=== PATIENT | male | born 1990 | race Caucasian/White ===

== ENCOUNTER 2017-10-04 22:37 | Inpatient (IN) | payer SELFPAY ==
[~2017-10-04] VITALS: Ht 182.9 cm; Wt 132.0 kg
[~2017-10-04 22:37] MED LIST: METF500T PO; OSEL75 PO; ZOFR4TAB PO
[2017-10-05] VITALS (8 sets, daily range): BP systolic 131–143; BP diastolic 78–87; PULSE 114–124; RESP 20–21; TEMP 98.1–98.9; O2SAT 94–96
[2017-10-05] MEDS ORDERED: ACETAMINOPHEN 325 MG TAB PO PRN (02:30)
[2017-10-05] MEDS ORDERED: SODIUM CHLORIDE 0.9% FLUSH 10 ML FLUSH IV FLUSH PRN (02:30)
[2017-10-05] MEDS ORDERED: GLUCAGON 1 MG/ML VIAL OTHER PRN ×2 (02:30→15:15)
[2017-10-05] MEDS ORDERED: DEXTROSE 50% IN WATER 50 ML VIAL(D50) IV PUSH PRN ×2 (02:30→15:15)
[2017-10-05] MEDS ORDERED: NALOXONE HCL 0.4 MG/ML AMP IV PUSH PRN (02:30)
--- NOTE | 2017-10-05 03:07 | HHI.HP ---
[facility] Primary Care Physician No Primary Care Physician Admission Diagnosis Diagnoses: Chief Complaint: Abdominal pain Travel History International Travel<30 Days: No Contact w/Intl Traveler <30 Da: No History of Present Illness 27-year-old male with a history of newly diagnosed diabetes presented to the ED with complaints of abdominal pain. Patient states he is having right lower quadrant pain, constant, 8/10, dull stabbing , worse with movement with radiation to umbilical area and with associated nausea and fevers. He denies any chest pain, shortness of breath, fever or chills. Patient has just been diagnosed with diabetes, has not started his metformin yet, but states he does check his blood sugar at home with his mom's Accu-Chek and states it ranges from 180-200. Denies any chest pain or sob. Review of Systems Except as stated in HPI: all other systems reviewed are Neg Past Family Social History Past Medical History Newly diagnosed diabetes, has not started metformin yet Past Surgical History Tonsillectomy Allergies: Coded Allergies: naproxen (Verified Allergy, Intermediate, FACIAL SWELLING, 10/03/17) Family History Mom: Diabetes Dad: DM Social History Tobacco use: Denies Alcohol use: Socially Illicit drug use: Denies Physical Exam Physical Exam GENERAL: This is a well-nourished, obese patient who appears comfortable SKIN: No rashes, ecchymoses or lesions. Cool and dry. HEAD: Atraumatic. Normocephalic. EYES: Pupils equal round and reactive. Extraocular motions intact. No scleral icterus. CARDIOVASCULAR: Regular rate and rhythm without murmurs, gallops, or rubs. RESPIRATORY: Clear to auscultation. Breath sounds equal bilaterally. GASTROINTESTINAL: Abdomen soft, RLQ tenderness, nondistended. MUSCULOSKELETAL: Extremities without clubbing, cyanosis, or edema. NEUROLOGICAL: Awake and alert. Normal speech. Caprini VTE Risk Assessment Caprini VTE Risk Assessment: No/Low Risk (score <= 1) Caprini Risk Assessment Model Point Value = 1 Point Value = 2 Point Value = 3 Point Value = 5 Age 41-60 Minor surgery BMI > 25 kg/m2 Swollen legs Varicose veins or History of unexplained or recurrent spontaneous Oral contraceptives or hormone replacement Sepsis (< 1 month) Serious lung disease, including pneumonia (< 1 month) Abnormal pulmonary function Acute myocardial infarction Congestive heart failure (< 1 month) History of inflammatory bowel disease Medical patient at bed rest Age 61-74 Arthroscopic surgery Major open surgery (> 45 min) Laparoscopic surgery (> 45 min) Malignancy Confined to bed (> 72 hours) Immobilizing plaster cast Central venous access Age >= 75 History of VTE Family history of VTE Factor V Leiden Prothrombin [id number] Lupus anticoagulant Anticardiolipin antibodies Elevated serum homocysteine Heparin-induced thrombocytopenia Other congenital or acquired thrombophilia Stroke (< 1 month) Elective arthroplasty Hip, pelvis, or leg fracture Acute spinal cord injury (< 1 month) Prophylaxis Regimen Total Risk Factor Score Risk Level Prophylaxis Regimen 0-1 Low Early ambulation 2 Moderate Order ONE of the following: *Sequential Compression Device (SCD) *Heparin 5000 units SQ BID 3-4 Higher Order ONE of the following medications: *Heparin 5000 units SQ TID *Enoxaparin/Lovenox 40 mg SQ daily (WT < 150 kg, CrCl > 30 mL/min) *Enoxaparin/Lovenox 30 mg SQ daily (WT < 150 kg, CrCl > 10-29 mL/min) *Enoxaparin/Lovenox 30 mg SQ BID (WT < 150 kg, CrCl > 30 mL/min) AND/OR *Sequential Compression Device (SCD) 5 or more Highest Order ONE of the following medications: *Heparin 5000 units SQ TID (Preferred with Epidurals) *Enoxaparin/Lovenox 40 mg SQ daily (WT < 150 kg, CrCl > 30 mL/min) *Enoxaparin/Lovenox 30 mg SQ daily (WT < 150 kg, CrCl > 10-29 mL/min) *Enoxaparin/Lovenox 30 mg SQ BID (WT < 150 kg, CrCl > 30 mL/min) AND *Sequential Compression Device (SCD) Assessment and Plan Assessment and Plan 27-year-old male with a history of newly diagnosed diabetes presented to the ED with complaints of abdominal pain. Sepsis by criteria with associated abdominal pain, suspect duodenitis WBC 17.3, patient is tachycardic Abdominal CT reviewed and shows extensive inflammatory changes in the retroperitoneum which appears to be centered on the duodenum, infectious or inflammatory duodenitis and/or perforation cannot be excluded. -Consult GI for recommendations -IVF for hydration -Antiemetics for nausea -IV antibiotics Zosyn -Follow blood cultures New onset diabetes -Accu-Cheks with sliding scale insulin -A1c ordered, -Diabetic diet when no longer npo -Start metformin in [address] DVT prophylaxis: SCDs Discussed Condition With Patient and RN Physician Certification 2 Midnight Certification Type: Admission for Inpatient Services Order for Inpatient Services The services are ordered in accordance with Medicare regulations or non- Medicare payer requirements, as applicable. In the case of services not specified as inpatient-only, they are appropriately provided as inpatient services in accordance with the 2-midnight benchmark. Estimated LOS (days): 2 days is the estimated time the patient will need to remain in the hospital, assuming treatment plan goals are met and no additional complications. Post-Hospital Plan: Home [place] Gilliland Oct 05, 2017 03:07
[2017-10-05] MEDS: SODIUM CHLOR 0.9% 1000 ML INJ 1,000 ML IV SCH ×3 (03:31→19:35)
[2017-10-05] MEDS: PIPERACIL-TAZO 3.375 GM PREMIX 50 ML IV SCH ×4 (03:31→20:27)
[2017-10-05] MEDS: MORPHINE SULFATE 4 MG/ML INJ IV PUSH PRN ×3 (04:25→20:27)
[2017-10-05] MEDS: INSULIN ASPART SUPPLEMENTAL SCALE SQ SCH ×4 (08:00→21:00)
[2017-10-05 08:12] LABS: AUTOMATED NEUTROPHIL # 11.1 TH/MM3 (1.8-7.7); BASOPHIL % 0.3 % (0.0-2.0); EOSINOPHIL % 0.3 % (0.0-4.0); HEMATOCRIT 38.3 % (39.0-51.0); LYMPH % 11.1 % (9.0-44.0); LYMPHOCYTE # 1.5 TH/MM3 (1.0-4.8); MEAN CELL VOLUME 88.3 FL (80.0-100.0); MEAN CORPUSCULAR HEMOGLOBIN 29.9 PG (27.0-34.0); MEAN CORPUSCULAR HGB CONC 33.8 % (32.0-36.0); MEAN PLATELET VOLUME 9.4 FL (7.0-11.0); MONO % 8.8 % (0.0-8.0); MONOCYTE # 1.2 TH/MM3 (0-0.9); NEUT % 79.5 % (16.0-70.0); PLATELET COUNT 221 TH/MM3 (150-450); RED BLOOD COUNT 4.34 MIL/MM3 (4.50-5.90); RED CELL DISTRIBUTION WIDTH 13.7 % (11.6-17.2); WHITE BLOOD COUNT 13.9 TH/MM3 (4.0-11.0)
[2017-10-05] MEDS: SODIUM CHLORIDE 0.9% FLUSH 10 ML FLUSH IV FLUSH SCH ×2 (08:33→20:28)
[2017-10-05 08:45] LABS: BICARBONATE 16.1 MEQ/L (21.0-32.0); BLOOD UREA NITROGEN 6 MG/DL (7-18); CALCIUM 8.2 MG/DL (8.5-10.1); CHLORIDE 104 MEQ/L (98-107); CREATININE 0.67 MG/DL (0.60-1.30); GLOMERULAR FILTRATION RATE 143 ML/MIN (>89); GLUCOSE,RANDOM 183 MG/DL (74-106); SODIUM (NA) 136 MEQ/L (136-145)
--- NOTE | 2017-10-05 09:04 | PD.CONS ---
HPI History of Present Illness This is a 27 year old with a history of newly diagnosed diabetes presented to the ED with complaints of abdominal pain. Symptoms started on Saturday, with N/V , first thought it was the flu, was placed on Theraflu. He started having RLQ pain, he went to the ED in [place], symptoms were attributed to newly diagnosed DM, CT done and that showed extensive inflammatory changes in the retroperitoneum which appears to be centered on the duodenum, infectious or inflammatory duodenitis and/or perforation cannot be excluded. The pain is in right lower quadrant pain, but spreading to lower abd area, constant, 8/10, dull stabbing . He endorses fever of 99 at home. States BMs have been irregular , but he hasn't been eating right due to pain and decline in appetite. Endorses loose stools. He denies hematemesis, melena or hematochezia. Denies previous hx of this. No family hx of IBD. Labs revealed leukocytosis. Patient has just been diagnosed with diabetes, has not started his metformin yet, but states he does check his blood sugar at home with his mom's Accu-Chek and states it ranges from 180-200. (Walter Tenorio) PFSH Past Medical History Newly diagnosed diabetes, has not started metformin yet Past Surgical History Tonsillectomy (Walter Tenorio) Coded Allergies: naproxen (Verified Allergy, Intermediate, FACIAL SWELLING, 10/03/17) Medications Current Medications Medications (Trade) Dose Ordered Sig/Derek Route Start Time Stop Time Status Last Admin Sodium Chloride 1,000 ml @ 100 mls/hr Q10H IV 10/05/17 02:29 10/05/17 03:31 (NS Flush) 2 ml UNSCH PRN IV FLUSH 10/05/17 02:30 (NS Flush) 2 ml BID IV FLUSH 10/05/17 09:00 (Tylenol) 650 mg Q4H PRN PO 10/05/17 02:30 (Narcan Inj) 0.4 mg UNSCH PRN IV PUSH 10/05/17 02:30 (D50w (Vial) Inj) 50 ml UNSCH PRN IV PUSH 10/05/17 02:30 (Glucagon Inj) 1 mg UNSCH PRN OTHER 10/05/17 02:30 (NovoLOG SUPPLEMENTAL SCALE) 1 ACHS SLIDING SCALE SQ 10/05/17 08:00 Piperacillin Sod/ Tazobactam Sod 50 ml @ 100 mls/hr Q6H IV 10/05/17 03:00 10/05/17 08:33 (Reglan Inj) 10 mg Q8H PRN IM 10/05/17 02:45 (Morphine Inj) 2 mg Q3H PRN IV PUSH 10/05/17 02:45 10/05/17 08:33 Family History Mom: Diabetes Dad: DM Social History Tobacco use: Denies Alcohol use: Socially Illicit drug use: Denies (Walter Tenorio) Review of Systems Constitutional: COMPLAINS OF: Fatigue, Fever, Change in appetite Endocrine: DENIES: Polyuria Eyes: DENIES: Double Vision Ears, nose, mouth, throat: DENIES: Hoarseness Respiratory: DENIES: Shortness of breath Cardiovascular: DENIES: Chest pain Gastrointestinal: COMPLAINS OF: Abdominal pain, Diarrhea, Nausea, Vomiting, Anorexia, DENIES: Black stools, Bloody stools, Constipation, Difficulty Swallowing, Odynophagia, Swelling of Abdomen, Heartburn, Hematemesis Genitourinary: DENIES: Hematuria Musculoskeletal: DENIES: Back pain Integumentary: DENIES: Jaundice Hematologic/lymphatic: DENIES: Bruising Immunologic/allergic: DENIES: Eczema Neurologic: DENIES: Abnormal gait Psychiatric: DENIES: Anxiety (Walter Tenorio) GI Exam Vitals I&O Vital Signs Date Time Temp Pulse Resp B/P (MAP) Pulse Ox O2 Delivery O2 Flow Rate FiO2 10/05/17 08:00 98.1 116 20 131/78 (95) 94 10/05/17 05:49 98.9 116 21 133/78 (96) [address] on 10/04/17 extensive inflammatory changes in the retroperitoneum which appears to be centered on the duodenum, infectious or inflammatory duodenitis and/or perforation cannot be excluded. Laboratory Test 10/05/17 07:08 White Blood Count 13.9 TH/MM3 Red Blood Count 4.34 MIL/MM3 Hemoglobin 13.0 GM/DL Hematocrit 38.3 % Mean Corpuscular Volume 88.3 FL Mean Corpuscular Hemoglobin 29.9 PG Mean Corpuscular Hemoglobin Concent 33.8 % Red Cell Distribution Width 13.7 % Platelet Count 221 TH/MM3 Mean Platelet Volume 9.4 FL Neutrophils (%) (Auto) 79.5 % Lymphocytes (%) (Auto) 11.1 % Monocytes (%) (Auto) 8.8 % Eosinophils (%) (Auto) 0.3 % Basophils (%) (Auto) 0.3 % Neutrophils # (Auto) 11.1 TH/MM3 Lymphocytes # (Auto) 1.5 TH/MM3 Monocytes # (Auto) 1.2 TH/MM3 Eosinophils # (Auto) 0.0 TH/MM3 Basophils # (Auto) 0.0 TH/MM3 CBC Comment DIFF FINAL Differential Comment Blood Urea Nitrogen 6 MG/DL Creatinine 0.67 MG/DL Random Glucose 183 MG/DL Calcium Level 8.2 MG/DL Sodium Level 136 MEQ/L Potassium Level 3.7 MEQ/L Chloride Level 104 MEQ/L Carbon Dioxide Level 16.1 MEQ/L Anion Gap 16 MEQ/L Estimat Glomerular Filtration Rate 143 ML/MIN Physical Examination HEENT: Pupils round and reactive to light; normocephalic; atraumatic; no jaundice. Throat is clear. CHEST: Chest is clear to auscultation and percussion. CARDIAC: Regular rate and rhythm with no murmur gallop or rubs. ABDOMEN: Soft, nondistended, RLQ tenderness; no hepatosplenomegaly; bowel sounds are present in all four quadrants. EXTREMITIES: No clubbing, cyanosis, or edema. SKIN: Normal; no rash; no jaundice. DEVOPS SOLUTIONS ARCHITECT: No focal deficits; alert and oriented times three. (Walter Tenorio) Assessment and Plan Plan - Abd pain- Symptoms started on Saturday, with N/V, first thought it was the flu, was placed on Theraflu. He started having RLQ pain, he went to the ED in [place], symptoms were attributed to newly diagnosed DM, CT done 10/04/17 and that showed extensive inflammatory changes in the retroperitoneum which appears to be centered on the duodenum, infectious or inflammatory duodenitis and/or perforation cannot be excluded. The pain is in right lower quadrant pain, but spreading to lower abd area, constant, 8/10, dull stabbing . He endorses fever of 99 at home. States BMs have been irregular, but he hasn't been eating right due to pain and decline in appetite. Endorses loose stools. He denies hematemesis, melena or hematochezia. Denies previous hx of this. No family hx of IBD. Labs revealed leukocytosis. - leukocytosis- likely secondary to above, blood cx pending, afebrile, Zosyn - Patient has just been diagnosed with diabetes, has not started his metformin yet, but states he does check his blood sugar at home with his mom's Accu-Chek and states it ranges from 180-200. Differential diagnosis include pancreatitis, diverticulitis, IBD Plan: - NPO - SBF with Gastrografin - Consults surg. - Needs EGD/colonoscopy pending above results. - LFTs, lipase - Cont. abx - Supportive care - Pt seen and examined by Dr. Delgado and myself and this note is written on her behalf. (Walter Tenorio) Physician Comments seen, examined agree with above sbft negative we will order mrcp lipid profile (Radha Delgado MD) Walter Tenorio Oct 05, 2017 09:04 Radha Delgado MD Oct 05, 2017 20:31
[2017-10-05 10:42] LABS: TOTAL BILIRUBIN ADULT 0.7 MG/DL (0.2-1.0)
[2017-10-05 10:43] LABS: ALBUMIN 2.6 GM/DL (3.4-5.0); DIRECT BILIRUBIN ADULT 0.1 MG/DL (0.0-0.2); INDIRECT BILIRUBIN 0.6 MG/DL (0.0-0.8)
--- NOTE | 2017-10-05 10:51 | RADRPT ---
EXAM DATE: 10/05/2017 10:46 AM EDT AGE/SEX: 27 years / Male INDICATIONS: Rule-out perforation. Right sided abdominal pain. CLINICAL DATA: This is the patient's initial encounter. Patient reports that signs and symptoms have been present for 4 - 6 days and indicates a pain score of 10/10. MEDICAL/SURGICAL HISTORY: None. None. COMPARISON: [facility], CT ABDOMEN & PELVIS W CONTRAST, 10/04/2017. . FLUORO TIME: 0.4 IMAGE COUNT: 15 CONTRAST: FINDINGS: Preliminary film is unremarkable. The stomach is grossly unremarkable. Examination of the small bowel demonstrates mild wall thickening involving jejunal bowel loops in lef t abdomen. No significant dilated loops.. There is no evidence of mass or obstruction. No intralumi nal filling defects are identified. Small bowel transit time is normal at 60 minutes. Fluoroscopy o f the abdomen and terminal ileum demonstrates no abnormality. CONCLUSION: Mild mucosal wall thickening of jejunal bowel loops. No obstruction. No definite perforation. Electronically signed by: Eugenio Koch MD 10/05/2017 10:50 AM EDT
[2017-10-05] MEDS: METOCLOPRAMIDE HCL 10 MG/2 ML VIAL IM PRN (10:53)
[2017-10-05] MEDS ORDERED: DIATRIZOATE MEGLUM/DIATRIZOATE SOD 120 ML BTL (for RAD DIAG) PO ONE (11:38)
[2017-10-05 11:40] LABS: HEMOGLOBIN A1C 11.8 % (4.3-6.0)
--- NOTE | 2017-10-05 12:45 | HHI.PR ---
Subjective Remarks Pt seen and examined for f/u of abdominal pain, nausea, and vomiting. Pt reports since having several bowel movements this morning he has felt some relief of his abdominal pain and pressure. He states his BMs are liquid and yellow, no blood. He reports feeling hungry and states he feels like he can eat. He admits to binge drinking on the weekends and thinks that his symptoms may have been preceded by a binge drinking episode. Currently he feels burning in his suprapubic region and RLQ. Last episode of vomiting was after he drank the contrast. Objective Vital Signs Date Time Temp Pulse Resp B/P (MAP) Pulse Ox O2 Delivery O2 Flow Rate FiO2 10/05/17 12:08 124 10/05/17 10:55 122 10/05/17 08:00 98.1 116 20 131/78 (95) 94 10/05/17 05:49 98.9 116 21 133/78 (96) 96 I/O 10/04/17 10/04/17 10/04/17 10/05/17 10/05/17 10/05/17 07:00 15:00 23:00 07:00 15:00 23:00 Intake Total 50 ml Balance 50 ml Intake IV Total 50 ml # Voids 1 Result Diagram: 10/05/17 0708 10/05/17 0708 Imaging Small Bowel X-Ray 10/05/17 0000 Signed Impressions: CONCLUSION: Mild mucosal wall thickening of jejunal bowel loops. No obstruction. No definit e perforation. Objective Remarks GENERAL: WN, WD male resting in bed in [facility]. SKIN: Warm and dry. HEENT: AT/NC. Pupils equal and round. MMM. NECK: Supple no tender LAD or JVD. HEART: RRR no m/r/g. LUNGS: CTAB without wheezes or crackles. ABDOMEN: Hypoactive bowel sounds, soft, ND, mild tenderness in epigastric, suprapubic, and RLQ. No guarding or rebound. EXTREMITIES: No LE edema. NEURO: Awake and alert. Nonfocal. PSYCH: Appropriate mood and affect. A/P Problem List: (1) Abdominal pain ICD Code: R10.9 - Unspecified abdominal pain Assessment and Plan 27 year old male with new onset diabetes diagnosed in the ER on 10/03 admitted for worsening abdominal pain, nausea, and vomiting. 1. Abdominal pain, SIRS/sepsis with ?GI source - CT A/P from ER on 10/03 showing inflammatory change and indistinctness involving the region of the head of the pancreas most characteristic of acute pancreatitis with adjacent calcification which may be located in the bowel; small amount of fluid extending down the right paracolic gutter into the pelvis ; prominent liver with moderate to severe hepatic steatosis; unremarkable appearing gallbladder with no calcified gallstone - White count elevated to 18, down to 13.9 this morning - Lipase jumped from 193 yesterday evening to 3353 today and there was evidence of pancreatitis on prior CT but I am not sure this is the reason for all of his pain. Will still treat accordingly with pain control, IV fluid hydration, and bowel rest - Small bowel follow-through showing mild mucosal wall thickening of jejunal bowel loops, no obstruction, no definite perforation - Blood cultures NG x 1 day - GI consulted, planning on EGD and colonoscopy but first consulted general surgery to rule out perforation - Increase IV fluids to 150 ml/hr - Antiemetics - IV Zosyn to cover for sepsis with suspected GI source - Morphine PRN 2. New onset DM - A1c elevated at 11.8 - channel sales manager and resident caregiver consulted - SSI per protocol 3. Diarrhea - May be secondary to contrast and IV abx since it just started but will check C. diff PCR - Lactobacillus DVT prophylaxis: Carin Beavers MD Oct 05, 2017 12:45
--- NOTE | 2017-10-05 16:50 | MB ---
cc: Montana Villa MD DATE: 10/05/2017 REASON FOR CONSULTATION: Possible perforated duodenum. HISTORY OF PRESENT ILLNESS: This is a pleasant 27-year-old gentleman who has been in the hospital since yesterday. He has had 2 other ER visits. He had complained of some abdominal discomfort, at one time thought he had the flu and they put him on some Tamiflu. He then returned to the emergency room with increasing pain. CT scan showed pancreatitis. Then, he apparently left and then came back. Another scan done with contrast showed more severe pancreatitis, question thickened duodenum and inflammation around the duodenum, and repeat blood work showed an amylase of 3000 range. Surgery is consulted because of the inflammation around the duodenum, questionable perforation. PAST MEDICAL HISTORY: Negative for any chronic medical problems, although he was recently diagnosed with new onset diabetes and recently started on Tamiflu for questionable the flu. SOCIAL HISTORY: He does drink occasionally, and last weekend found out he was becoming a father and celebrated last Saturday, but had not drank since then. He denies any tobacco use. PHYSICAL EXAMINATION: GENERAL: He is a well-nourished gentleman, alert, oriented, obviously uncomfortable. NECK: Supple. LUNGS: Clear. HEART: Regular rate. ABDOMEN: Tender in the right flank, right lower quadrant area with no rebound or guarding. No surgical scars. No umbilical hernia. Bowel sounds are present throughout. NEUROLOGIC: He is alert and oriented, without focal deficits. He is able to move his extremities without difficulty. LABORATORY DATA: He had a white count of 18,000 on the . Today, it is 13. H and H of 13 at 38. Chemistry shows a slightly elevated total bilirubin, which was yesterday and now is normal. His hemoglobin A1c is 11. His lipase yesterday was 193; today, it is 3353. IMAGING STUDIES: He had a CT scan done the , which showed some inflammation around the pancreas. He had a CT scan with contrast done on the , which showed questionable thickening, inflammation of the duodenum and pancreas. No gallstones were mentioned. I did a small-bowel follow through series, which shows some thickening mucosa of the jejunum, but no obstruction or no perforation. ASSESSMENT: A 27-year-old gentleman who appears to have severe pancreatitis. I reviewed the case with Dr. Delgado, the chef & owner, reviewed the case with the patient and also his . At this point, MRCP to see if he has stones. I suspect if he does not have stones, it may be related to his diabetes or possibly medicine or his alcohol use. I will follow along during this interesting workup of this gentleman. Montana Villa MD JANNIKA/FISH , 04:31 PM , 04:48 PM
[2017-10-05 17:23] LABS: BILIRUBIN, URINE NEG (NEG); BLOOD, URINE SMALL (NEG); GLUCOSE,URINE >=500 mg/dL (NEG); KETONE, URINE 80 OR GREATER mg/dL (NEG); NITRITE,URINE NEG (NEG); URINE COLOR YELLOW (YELLW/STRAW); URINE LEUKOCYTE ESTERASE NEG (NEG)
--- NOTE | 2017-10-05 17:35 | RADRPT ---
EXAM DATE: 10/05/2017 5:06 PM EDT AGE/SEX: 27 years / Male INDICATIONS: Pancreatitis. CLINICAL DATA: This is the patient's initial encounter. Patient reports that signs and symptoms have been present for 1 day and indicates a pain score of 5/10. MEDICAL/SURGICAL HISTORY: None. Tonsillectomy. COMPARISON: No prior exams available for comparison. TECHNIQUE: Multiplanar, multisequence images of the abdomen were obtained without contrast including dedicated cholangiographic images. FINDINGS: Correlation is made with recent CT. On today's exam there is more edema and fluid around the pancreas than on the recent CT from October 04 most characteristic of an acute pancreatitis. The second portion of the duodenum also has some mural thickening suggesting duodenitis. Common bile duct has normal caliber of about 4 mm without evidence for choledocholithiasis. The liver is fatty and enlarged to 28 cm in length. Spleen is normal in size. Pancreatic duct has normal calib er. No acute findings in the kidneys or adrenals. No bowel obstruction identified. CONCLUSION: 1. Fluid and edematous changes around the pancreas most characteristic of an acute pancreatitis. Nor mal appearance of the common bile duct and pancreatic duct. 2. Fatty infiltration with hepatomegaly up to 28 cm. Electronically signed by: Montana Estrada MD 10/05/2017 5:34 PM EDT
[2017-10-05] MEDS: LACTOBACILLUS ACIDOPHILUS TAB PO SCH (20:26)
[2017-10-06] VITALS: BP 142/92; PULSE 110; RESP 21; TEMP 98.4; O2SAT 95
[2017-10-06] MEDS: SODIUM CHLOR 0.9% 1000 ML INJ 1,000 ML IV SCH ×5 (00:38→20:14)
[2017-10-06] MEDS: PIPERACIL-TAZO 3.375 GM PREMIX 50 ML IV SCH ×2 (03:59→08:15)
[2017-10-06 04:00] VITALS: BP 139/81; PULSE 103; RESP 20; TEMP 98.5; O2SAT 94
[2017-10-06 05:14] LABS: AUTOMATED NEUTROPHIL # 11.1 TH/MM3 (1.8-7.7); BASOPHIL # 0.1 TH/MM3 (0-0.2); BASOPHIL % 0.5 % (0.0-2.0); EOSINOPHIL # 0.2 TH/MM3 (0-0.4); EOSINOPHIL % 1.2 % (0.0-4.0); HEMATOCRIT 37.4 % (39.0-51.0); HEMOGLOBIN 12.5 GM/DL (13.0-17.0); LYMPH % 12.5 % (9.0-44.0); LYMPHOCYTE # 1.8 TH/MM3 (1.0-4.8); MEAN CELL VOLUME 87.7 FL (80.0-100.0); MEAN CORPUSCULAR HEMOGLOBIN 29.2 PG (27.0-34.0); MEAN CORPUSCULAR HGB CONC 33.3 % (32.0-36.0); MONO % 8.8 % (0.0-8.0); MONOCYTE # 1.3 TH/MM3 (0-0.9); PLATELET COUNT 246 TH/MM3 (150-450); RED BLOOD COUNT 4.27 MIL/MM3 (4.50-5.90); RED CELL DISTRIBUTION WIDTH 13.7 % (11.6-17.2); WHITE BLOOD COUNT 14.4 TH/MM3 (4.0-11.0)
[2017-10-06 05:35] LABS: BICARBONATE 17.3 MEQ/L (21.0-32.0); CALCIUM 8.1 MG/DL (8.5-10.1); CREATININE 0.64 MG/DL (0.60-1.30)
[2017-10-06 05:37] LABS: CHOLESTEROL/ HDL RATIO 8.84 RATIO; HDL CHOLESTEROL 25.2 MG/DL (40.0-60.0)
[2017-10-06] MEDS: SODIUM CHLORIDE 0.9% FLUSH 10 ML FLUSH IV FLUSH SCH ×2 (07:55→20:16)
[2017-10-06 08:00] VITALS: BP 143/90; PULSE 104; RESP 17; TEMP 97.8; O2SAT 94
[2017-10-06] MEDS: MORPHINE SULFATE 4 MG/ML INJ IV PUSH PRN ×4 (08:15→20:25)
[2017-10-06] MEDS: LACTOBACILLUS ACIDOPHILUS TAB PO SCH ×2 (08:15→20:12)
[2017-10-06] MEDS: INSULIN ASPART SUPPLEMENTAL SCALE SQ SCH ×4 (08:16→20:24)
[2017-10-06 12:00] VITALS: BP 140/87; PULSE 96; RESP 18; TEMP 98.9; O2SAT 94
--- NOTE | 2017-10-06 12:45 | HHI.GIFU ---
Subjective Remarks Patient is resting in the bed family member present Positive for some mild nausea but no vomiting, tolerating clear liquid diet Current hemoglobin 12.5 no obvious bleeding Still has some mild right lower quadrant discomfort dull ache. (Laya Napoles) Objective Vitals I&O Vital Signs Date Time Temp Pulse Resp B/P (MAP) Pulse Ox O2 Delivery O2 Flow Rate FiO2 10/06/17 08:20 18 10/06/17 08:00 97.8 104 17 143/90 (107) 94 10/06/17 04:00 98.5 103 20 139/81 (100) 94 10/06/17 00:00 98.4 110 21 142/92 (109) 95 10/05/17 19:57 98.3 114 21 143/85 (104) 95 10/05/17 16:18 98.4 117 20 136/87 (103) 95 10/05/17 15:59 121 10/05/17 12:45 98.1 122 20 134/83 (100) 94 I/O 10/05/17 10/05/17 10/05/17 10/06/17 10/06/17 10/06/17 07:00 15:00 23:00 07:00 15:00 23:00 Intake Total 50 ml 50 ml 2417 ml Balance 50 ml 50 ml 2417 ml Intake Oral 1450 ml IV Total 50 ml 50 ml 967 ml # Voids 1 2 # Bowel Movements 1 Laboratory Laboratory Tests Test 10/05/17 16:10 10/05/17 17:25 10/06/17 04:55 10/06/17 09:44 Urine Color YELLOW Urine Turbidity CLEAR Urine pH 5.0 Urine Specific [place] 1.028 Urine Protein 100 Urine Glucose (UA) >=500 Urine Ketones 80 OR GREATER Urine Occult Blood SMALL Urine Nitrite NEG Urine Bilirubin NEG Urine Urobilinogen LESS THAN 2 Urine Leukocyte Esterase NEG Urine RBC 1 Urine WBC 2 Microscopic Urinalysis Comment CULT NOT INDICATED Stool C. difficile Toxin (PCR) NEGATIVE Stl C. difficile Toxin Epiderm 027 PRESUMPTIVE NEGATIVE White Blood Count 14.4 Red Blood Count 4.27 Hemoglobin 12.5 Hematocrit 37.4 Mean Corpuscular Volume 87.7 Mean Corpuscular Hemoglobin 29.2 Mean Corpuscular Hemoglobin Concent 33.3 Red Cell Distribution Width 13.7 Platelet Count 246 Mean Platelet Volume 9.0 Neutrophils (%) (Auto) 77.0 Lymphocytes (%) (Auto) 12.5 Monocytes (%) (Auto) 8.8 Eosinophils (%) (Auto) 1.2 Basophils (%) (Auto) 0.5 Neutrophils # (Auto) 11.1 Lymphocytes # (Auto) 1.8 Monocytes # (Auto) 1.3 Eosinophils # (Auto) 0.2 Basophils # (Auto) 0.1 CBC Comment DIFF FINAL Differential Comment Blood Urea Nitrogen 7 Creatinine 0.64 Random Glucose 194 Calcium Level 8.1 Sodium Level 139 Potassium Level 3.4 Chloride Level 106 Carbon Dioxide Level 17.3 Anion Gap 16 Estimat Glomerular Filtration Rate 151 Triglycerides Level 307 Cholesterol Level 223 LDL Cholesterol 136 HDL Cholesterol 25.2 Cholesterol/HDL Ratio 8.84 Lipase 424 Lactic Acid Level 0.8 Imaging Last Impressions Small Bowel X-Ray 10/05/17 0000 Signed Impressions: CONCLUSION: Mild mucosal wall thickening of jejunal bowel loops. No obstruction. No definit e perforation. Cholangiopancreatography MRI 10/05/17 0000 Signed Impressions: CONCLUSION: 1. Fluid and edematous changes around the pancreas most characteristic of an a cute pancreatitis. Normal appearance of the common bile duct and pancreatic clifton t. 2. Fatty infiltration with hepatomegaly up to 28 cm. Physical Exam HEENT: Obese, normocephalic; atraumatic; no jaundice. NECK: Neck is supple, no JVD, no lymphadenopathy. CHEST: Chest is clear to auscultation and percussion. CARDIAC: Regular tachycardic rhythm heart rate 104 ABDOMEN: Obese, round, soft, nondistended, mild right lower quadrant dull ache , no palpable hepatosplenomegaly; bowel sounds are present in all four quadrants. EXTREMITIES: No clubbing, cyanosis, or edema. SKIN: No rash, pale POSTING MACHINE OPERATOR: No focal deficits; alert and oriented times three. (Laya Napoles) Assessment and Plan Plan - Abd pain- Symptoms started on Saturday, with N/V, first thought it was the flu, was placed on Theraflu. He started having RLQ pain, he went to the ED in [place], symptoms were attributed to newly diagnosed DM, CT done 10/04/17 and that showed extensive inflammatory changes in the retroperitoneum which appears to be centered on the duodenum, infectious or inflammatory duodenitis and/or perforation cannot be excluded. The pain is in right lower quadrant pain, but spreading to lower abd area, constant, 8/10, dull stabbing . He endorses fever of 99 at home. States BMs have been irregular, but he hasn't been eating right due to pain and decline in appetite. Endorses loose stools. He denies hematemesis, melena or hematochezia. Denies previous hx of this. No family hx of IBD. Labs revealed leukocytosis. - leukocytosis- likely secondary to above, blood cx pending, afebrile, Zosyn - Patient has just been diagnosed with diabetes, has not started his metformin yet, but states he does check his blood sugar at home with his mom's Accu-Chek and states it ranges from 180-200. Differential diagnosis include pancreatitis, diverticulitis, IBD 10/06/2017. Patient is feeling somewhat better but continues with right lower quadrant discomfort dull ache. Current hemoglobin 12.5 mild elevated nonspecific leukocytosis 14.4, lipase level decreased to 424. Patient shows hyperlipidemia per lab work and hyperglycemia which is going to need following on an outpatient basis. Patient also states he has had a tendency to have an upset stomach even as a child and diarrhea without any warning. He states the symptoms are better as he has gotten older. He does continue to use Pepto- Bismol as needed and does note his stools to be dark. MRCP showed fluid and edematous changes around the pancreas most consistent with acute pancreatitis. Normal appearance of common bile duct and pancreatic duct fatty liver disease with megaly up to 28 cm's. Small bowel series 2017 showed mild mucosal wall thickening of the jejunal bowel loops. No obstruction. No definite perforation. Discussed with patient the possibility for colonoscopy before discharge. Chronic abdominal pain and diarrhea could be related to IBS. Plan: Diet clear liquids Monitor labs with special attention to lipase level, hemoglobin PPI Consider colonoscopy possibly this week Supportive care Further recommendations to follow - Pt seen and examined by Dr. Delgado and myself and this note is written on her behalf. (Laya Napoles) Physician Comments seen, examined agree with above (Radha Delgado MD) Laya Napoles Oct 06, 2017 12:44 Radha Delgado MD Oct 06, 2017 21:36
--- NOTE | 2017-10-06 14:13 | HHI.PR ---
Subjective Subjective Notes Still sore in the abdomen. Objective Vitals/I&O Vital Signs Date Time Temp Pulse Resp B/P (MAP) Pulse Ox O2 Delivery O2 Flow Rate FiO2 10/06/17 12:54 18 10/06/17 12:00 98.9 96 140/87 (104) 94 Labs Laboratory Tests Test 10/05/17 16:10 10/05/17 17:25 10/06/17 04:55 10/06/17 09:44 Urine Color YELLOW Urine Turbidity CLEAR Urine pH 5.0 Urine Specific [place] 1.028 Urine Protein 100 Urine Glucose (UA) >=500 Urine Ketones 80 OR GREATER Urine Occult Blood SMALL Urine Nitrite NEG Urine Bilirubin NEG Urine Urobilinogen LESS THAN 2 Urine Leukocyte Esterase NEG Urine RBC 1 Urine WBC 2 Microscopic Urinalysis Comment CULT NOT INDICATED Stool C. difficile Toxin (PCR) NEGATIVE Stl C. difficile Toxin Epiderm 027 PRESUMPTIVE NEGATIVE White Blood Count 14.4 Red Blood Count 4.27 Hemoglobin 12.5 Hematocrit 37.4 Mean Corpuscular Volume 87.7 Mean Corpuscular Hemoglobin 29.2 Mean Corpuscular Hemoglobin Concent 33.3 Red Cell Distribution Width 13.7 Platelet Count 246 Mean Platelet Volume 9.0 Neutrophils (%) (Auto) 77.0 Lymphocytes (%) (Auto) 12.5 Monocytes (%) (Auto) 8.8 Eosinophils (%) (Auto) 1.2 Basophils (%) (Auto) 0.5 Neutrophils # (Auto) 11.1 Lymphocytes # (Auto) 1.8 Monocytes # (Auto) 1.3 Eosinophils # (Auto) 0.2 Basophils # (Auto) 0.1 CBC Comment DIFF FINAL Differential Comment Blood Urea Nitrogen 7 Creatinine 0.64 Random Glucose 194 Calcium Level 8.1 Sodium Level 139 Potassium Level 3.4 Chloride Level 106 Carbon Dioxide Level 17.3 Anion Gap 16 Estimat Glomerular Filtration Rate 151 Triglycerides Level 307 Cholesterol Level 223 LDL Cholesterol 136 HDL Cholesterol 25.2 Cholesterol/HDL Ratio 8.84 Lipase 424 Lactic Acid Level 0.8 Abdomen: Other A/P Assessment and Plan Pancreatitis unrelated to gallstones. Discussed with the patient and his family the etiologies of pancreatitis. I warned them against alcohol use and high fat diets. We discussed treatment of hypertriglyceridemia and high cholesterol. We talked about the role in surgery for pancreatitis, and at this time he does not require any surgical intervention. Contrast study the bowel showed no bowel perforation. MRCP findings reviewed in detail. No surgical intervention indicated. General surgery will sign off. Jai De La Fuente MD Oct 06, 2017 14:13
[2017-10-06] MEDS ORDERED: RESP: ALBUTEROL 2.5 MG/IPRATROPIUM 0.5 MG NEB (PRN) NEB (14:30)
[2017-10-06] MEDS ORDERED: BENZONATATE 100 MG CAP PO PRN (14:30)
--- NOTE | 2017-10-06 14:42 | HHI.PR ---
Subjective Remarks Pt seen and examined for f/u of pancreatitis. Patient reports his abdominal pain is slightly better. He continues to have diffuse discomfort especially over his RUQ but it is controlled with the medication. He had two small, nonbloody stools today. Denies N/V. Tolerating clears. Complains of worsening cough and dripping down his throat. States his cough has been present for about a week. Also feeling a little congested. Objective Vital Signs Date Time Temp Pulse Resp B/P (MAP) Pulse Ox O2 Delivery O2 Flow Rate FiO2 10/06/17 12:54 18 10/06/17 12:00 98.9 96 18 140/87 (104) 94 10/06/17 08:00 97.8 104 17 143/90 (107) 94 10/06/17 04:00 98.5 103 20 139/81 (100) 94 10/06/17 00:00 98.4 110 21 142/92 (109) 95 10/05/17 19:57 98.3 114 21 143/85 (104) 95 10/05/17 16:18 98.4 117 20 136/87 (103) 95 10/05/17 15:59 121 I/O 10/05/17 10/05/17 10/05/17 10/06/17 10/06/17 10/06/17 07:00 15:00 23:00 07:00 15:00 23:00 Intake Total 50 ml 50 ml 2417 ml Balance 50 ml 50 ml 2417 ml Intake Oral 1450 ml IV Total 50 ml 50 ml 967 ml # Voids 1 2 # Bowel Movements 1 Result Diagram: 10/06/17 0455 10/06/17 0455 Imaging Small Bowel X-Ray 10/05/17 0000 Signed Impressions: CONCLUSION: Mild mucosal wall thickening of jejunal bowel loops. No obstruction. No definit e perforation. Cholangiopancreatography MRI 10/05/17 0000 Signed Impressions: CONCLUSION: 1. Fluid and edematous changes around the pancreas most characteristic of an a cute pancreatitis. Normal appearance of the common bile duct and pancreatic clifton t. 2. Fatty infiltration with hepatomegaly up to 28 cm. Objective Remarks GENERAL: WN, WD male resting in bed in NAD. SKIN: Warm and dry. HEENT: AT/NC. Pupils equal and round. MMM. NECK: Supple no tender LAD or JVD. HEART: RRR no m/r/g. LUNGS: Mild R basilar crackles otherwise clear though patient coughing throughout exam. No appreciable wheezing. ABDOMEN: Hyperactive bowel sounds, soft, ND, mild tenderness in epigastric, suprapubic, and RLQ. No guarding or rebound. EXTREMITIES: No LE edema. NEURO: Awake and alert. Nonfocal. PSYCH: Appropriate mood and affect. A/P Problem List: (1) Pancreatitis ICD Code: K85.90 - Acute pancreatitis without necrosis or infection, unspecified (2) Diabetes mellitus with hyperglycemia ICD Code: E11.65 - Type 2 diabetes mellitus with hyperglycemia (3) Hyperlipidemia ICD Code: E78.5 - Hyperlipidemia, unspecified Assessment and Plan 27 year old male with new onset diabetes diagnosed in the ER on 10/03 admitted for worsening abdominal pain, nausea, and vomiting. 1. Pancreatitis - CT A/P from ER on 10/03 showing inflammatory change and indistinctness involving the region of the head of the pancreas most characteristic of acute pancreatitis with adjacent calcification which may be located in the bowel; small amount of fluid extending down the right paracolic gutter into the pelvis ; prominent liver with moderate to severe hepatic steatosis; unremarkable appearing gallbladder with no calcified gallstone - White count continues to be slightly elevated at 14.4 - Lipase down to 424 from 3353 yesterday - Small bowel follow-through showing mild mucosal wall thickening of jejunal bowel loops, no obstruction, no definite perforation - GI consulted MRCP done earlier showing fluid and edematous changes around the pancreas most characteristic of an acute pancreatitis, normal appearance of the CBD and pancreatic duct, and fatty infiltration with hepatomegaly up to 28 cm - Possibly planning on EGD/colonoscopy later this week - General surgery initially consulted by GI for concern over possible perforation but now signed off since there is no surgical indication at this time; appreciate their evaluation - Continue NS at 150 ml/hr - Antiemetics - D/C Zosyn since antibiotics not indicated in treatment of acute pancreatitis - Morphine PRN - Etiologies of pancreatitis discussed with patient and his family. Counseled on abstaining from alcohol, controlling diabetes, weight loss 2. New onset DM - A1c elevated at 11.8 - in service educator and mill operator consulted - SSI per protocol 3. Diarrhea - May be secondary to contrast and IV abx - C. diff PCR negative - Lactobacillus 4. Cough - Present x 1 week - Check CXR given his O2 sat is dropping slightly and mild crackles were heard at R lung base - Tessalon PRN - Flonase for postnasal drip - DuoNeb PRN - Supplemental O2 PRN 5. Mixed hyperlipidemia - Start Atorvastatin 40 mg 6. Fatty liver infiltration - Counseled on the importance of weight loss, controlling DM and HLD - Avoiding hepatotoxic agents DVT prophylaxis: SCDs Carin Rodriguez MD Oct 06, 2017 14:42
--- NOTE | 2017-10-06 15:27 | RADRPT ---
EXAM DATE: 10/06/2017 3:23 PM EDT AGE/SEX: 27 years / Male INDICATIONS: Lower abdominal pain and cough. CLINICAL DATA: This is the patient's initial encounter. Patient reports that signs and symptoms have been present for 1 day and indicates a pain score of 0/10. MEDICAL/SURGICAL HISTORY: None. Tonsillectomy. COMPARISON: No prior exams available for comparison. FINDINGS: PA and lateral views of the chest demonstrate the lungs to be symmetrically aerated without evidence of mass, infiltrate or effusion. The cardiomediastinal contours are unremarkable. Osseous structures are intact. CONCLUSION: No active disease Electronically signed by: Montana Estrada MD 10/06/2017 3:25 PM EDT
[2017-10-06 16:00] VITALS: BP 151/93; PULSE 95; RESP 18; TEMP 99.3; O2SAT 97
[2017-10-06] MEDS: METOCLOPRAMIDE HCL 10 MG/2 ML VIAL IM PRN (16:00)
[2017-10-06] MEDS ORDERED: ONDANSETRON HCL 4 MG/2 ML VIAL IV PUSH PRN (16:15)
[2017-10-06] MEDS ORDERED: FLUMAZENIL 0.5 MG/5 ML VIAL IV PUSH PRN (17:00)
[2017-10-06] MEDS ORDERED: LORazepam 2 MG TAB PO PRN (17:00)
[2017-10-06] MEDS ORDERED: LORazepam 1 MG TAB PO PRN (17:00)
[2017-10-06] MEDS ORDERED: LORazepam 2 MG/ML VIAL IV PUSH PRN ×4 (17:00)
[2017-10-06 20:00] VITALS: BP 148/76; PULSE 105; RESP 22; TEMP 99.4; O2SAT 95
[2017-10-06] MEDS: FLUTICASONE PROPIONATE 50 MCG/ACT 16 GM NASAL SPRAY NASAL SCH (20:10)
[2017-10-06] MEDS: ATORVASTATIN 40 MG TAB PO SCH (20:12)
[2017-10-07 00:08] VITALS: BP 141/88; PULSE 104; RESP 20; TEMP 98.2; O2SAT 95
[2017-10-07] MEDS: MORPHINE SULFATE 4 MG/ML INJ IV PUSH PRN ×4 (00:09→12:05)
[2017-10-07] MEDS: SODIUM CHLOR 0.9% 1000 ML INJ 1,000 ML IV SCH ×4 (02:54→21:29)
[2017-10-07 04:00] VITALS: BP 147/89; PULSE 100; RESP 20; TEMP 98.4; O2SAT 94
[2017-10-07 06:09] LABS: AUTOMATED NEUTROPHIL # 9.4 TH/MM3 (1.8-7.7); BASOPHIL % 0.3 % (0.0-2.0); EOSINOPHIL # 0.2 TH/MM3 (0-0.4); EOSINOPHIL % 1.2 % (0.0-4.0); HEMATOCRIT 35.9 % (39.0-51.0); LYMPH % 16.9 % (9.0-44.0); LYMPHOCYTE # 2.1 TH/MM3 (1.0-4.8); MEAN CELL VOLUME 88.7 FL (80.0-100.0); MEAN CORPUSCULAR HEMOGLOBIN 29.7 PG (27.0-34.0); MEAN CORPUSCULAR HGB CONC 33.5 % (32.0-36.0); MEAN PLATELET VOLUME 8.9 FL (7.0-11.0); MONO % 7.7 % (0.0-8.0); NEUT % 73.9 % (16.0-70.0); PLATELET COUNT 251 TH/MM3 (150-450); RED BLOOD COUNT 4.05 MIL/MM3 (4.50-5.90); RED CELL DISTRIBUTION WIDTH 13.7 % (11.6-17.2); WHITE BLOOD COUNT 12.7 TH/MM3 (4.0-11.0)
[2017-10-07 06:38] LABS: ALBUMIN 2.1 GM/DL (3.4-5.0); AST (GOT) 21 U/L (15-37); BICARBONATE 17.4 MEQ/L (21.0-32.0); BLOOD UREA NITROGEN 4 MG/DL (7-18); CALCIUM 7.7 MG/DL (8.5-10.1); CHLORIDE 104 MEQ/L (98-107); CREATININE 0.61 MG/DL (0.60-1.30); GLOMERULAR FILTRATION RATE 160 ML/MIN (>89); GLUCOSE,RANDOM 140 MG/DL (74-106); SODIUM (NA) 136 MEQ/L (136-145)
[2017-10-07 06:43] LABS: ALKALINE PHOSPHATASE 55 U/L (45-117); ALT (GPT) 35 U/L (12-78); TOTAL BILIRUBIN ADULT 0.8 MG/DL (0.2-1.0); TOTAL PROTEIN 6.6 GM/DL (6.4-8.2)
[2017-10-07] MEDS: SODIUM CHLORIDE 0.9% FLUSH 10 ML FLUSH IV FLUSH SCH ×2 (07:58→21:31)
[2017-10-07] MEDS: INSULIN ASPART SUPPLEMENTAL SCALE SQ SCH ×4 (07:58→21:24)
[2017-10-07] MEDS: LACTOBACILLUS ACIDOPHILUS TAB PO SCH ×2 (07:59→21:22)
[2017-10-07] MEDS: FLUTICASONE PROPIONATE 50 MCG/ACT 16 GM NASAL SPRAY NASAL SCH ×2 (07:59→21:29)
[2017-10-07 08:00] VITALS: BP 133/81; PULSE 100; RESP 26; TEMP 98.3; O2SAT 94
--- NOTE | 2017-10-07 09:01 | HHI.PR ---
Subjective Remarks Pt seen and examined for f/u of pancreatitis. AFVSS except for mild tachycardia. No acute events overnight. Patient reports some improvement in abdominal pain but pain still present, 5/10, and located mostly in RLQ. States he had an episode of nausea and retching after coming back from CXR yesterday afternoon. Tolerating clears. He denies feeling shaky. He doesn't think he is going through EtOH withdrawal; last drink was over a week ago. Cough has improved with Flonase. Denies CP or SOB. Objective Vital Signs Date Time Temp Pulse Resp B/P (MAP) Pulse Ox O2 Delivery O2 Flow Rate FiO2 10/07/17 08:00 98.3 100 26 133/81 (98) 94 10/07/17 04:00 98.4 100 20 147/89 (108) 94 10/07/17 00:08 98.2 104 20 141/88 (105) 95 10/06/17 20:00 99.4 105 22 148/76 (100) 95 10/06/17 17:41 18 10/06/17 16:00 99.3 95 18 151/93 (112) 97 10/06/17 12:00 98.9 96 18 140/87 (104) 94 I/O 10/06/17 10/06/17 10/06/17 10/07/17 10/07/17 10/07/17 07:00 15:00 23:00 07:00 15:00 23:00 Intake Total 2417 ml 1770 ml 1200 ml Output Total 6 ml Balance 2417 ml 1764 ml 1200 ml Intake Oral 1450 ml 1770 ml 1200 ml IV Total 967 ml Output Urine Total 6 ml # Voids 2 3 # Bowel Movements 1 1 Result Diagram: 10/07/17 0450 10/07/17 0450 Imaging Chest X-Ray 10/06/17 0000 Signed Impressions: CONCLUSION: No active disease Small Bowel X-Ray 10/05/17 0000 Signed Impressions: CONCLUSION: Mild mucosal wall thickening of jejunal bowel loops. No obstruction. No definit e perforation. Cholangiopancreatography MRI 10/05/17 0000 Signed Impressions: CONCLUSION: 1. Fluid and edematous changes around the pancreas most characteristic of an a cute pancreatitis. Normal appearance of the common bile duct and pancreatic clifton t. 2. Fatty infiltration with hepatomegaly up to 28 cm. Objective Remarks GENERAL: WN, WD male resting in bed in NAD. SKIN: Warm and dry. HEENT: AT/NC. Pupils equal and round. MMM. NECK: Supple no tender LAD or JVD. HEART: RRR no m/r/g. LUNGS: CTAB without wheezes or crackles. ABDOMEN: +BS, soft, ND, mild tenderness in epigastric, suprapubic, and RLQ. No guarding or rebound. EXTREMITIES: No LE edema. NEURO: Awake and alert. Nonfocal. PSYCH: Appropriate mood and affect. A/P Problem List: (1) Pancreatitis ICD Code: K85.90 - Acute pancreatitis without necrosis or infection, unspecified (2) Diabetes mellitus with hyperglycemia ICD Code: E11.65 - Type 2 diabetes mellitus with hyperglycemia (3) Hyperlipidemia ICD Code: E78.5 - Hyperlipidemia, unspecified Assessment and Plan 27 year old male with new onset diabetes diagnosed in the ER on 10/03 admitted for worsening abdominal pain, nausea, and vomiting. 1. Pancreatitis - CT A/P from ER on 10/03 showing inflammatory change and indistinctness involving the region of the head of the pancreas most characteristic of acute pancreatitis with adjacent calcification which may be located in the bowel; small amount of fluid extending down the right paracolic gutter into the pelvis ; prominent liver with moderate to severe hepatic steatosis; unremarkable appearing gallbladder with no calcified gallstone - White count trending down - Lipase down to 424 from 3353 - Small bowel follow-through showing mild mucosal wall thickening of jejunal bowel loops, no obstruction, no definite perforation - GI consulted, MRCP done yesterday showing fluid and edematous changes around the pancreas most characteristic of an acute pancreatitis, normal appearance of the CBD and pancreatic duct, and fatty infiltration with hepatomegaly up to 28 cm - Possibly planning on EGD/colonoscopy - General surgery initially consulted by GI for concern over possible perforation but now signed off since there is no surgical indication at this time; appreciate their evaluation - Continue NS at 150 ml/hr - Antiemetics - Morphine PRN - Etiologies of pancreatitis discussed with patient and his family. Counseled on abstaining from alcohol, controlling diabetes, weight loss - ADAT 2. New onset DM - A1c elevated at 11.8 - art educator and knife finisher consulted - SSI per protocol 3. Diarrhea - May be secondary to contrast and IV abx - C. diff PCR negative - Lactobacillus 4. Cough - Present x 1 week - CXR negative - Tessalon PRN - Flonase for postnasal drip - DuoNeb PRN - Supplemental O2 PRN 5. Mixed hyperlipidemia - Started Atorvastatin 40 mg 6. Fatty liver infiltration - Counseled on the importance of weight loss, controlling DM and HLD - Avoiding hepatotoxic agents 7. EtOH abuse - Doubt withdrawal since last drink was +1 week ago - [facility] protocol - Counseled on the importance of cessation 8. Hypokalemia - KCl 40 meq IV - Check magnesium level DVT prophylaxis: Lovenox Discharge Planning D/C over next couple days if patient continues to show clinical improvement and GI work-up complete Carin Rodriguez MD Oct 07, 2017 09:01
[2017-10-07] MEDS: POTASSIUM CHLOR 20 MEQ PREMIX 100 ML IV SCH ×2 (09:36→11:11)
[2017-10-07] MEDS ORDERED: ENOXAPARIN SODIUM 40 MG/0.4 ML SYRINGE SQ SCH (10:00)
[2017-10-07 12:00] VITALS: BP 140/90; PULSE 100; RESP 19; TEMP 98.8; O2SAT 94
--- NOTE | 2017-10-07 12:46 | HHI.GIFU ---
Subjective Remarks Pain is better today, no nausea or vomiting, no bleeding, having soft stools. (Walter Tenorio BEVERLY) Objective Vitals I&O Vital Signs Date Time Temp Pulse Resp B/P (MAP) Pulse Ox O2 Delivery O2 Flow Rate FiO2 10/07/17 08:00 98.3 100 26 133/81 (98) 94 10/07/17 04:00 98.4 100 20 147/89 (108) 94 10/07/17 00:08 98.2 104 20 141/88 (105) 95 10/06/17 20:00 99.4 105 22 148/76 (100) 95 10/06/17 17:41 18 10/06/17 16:00 99.3 95 18 151/93 (112) 97 I/O 10/06/17 10/06/17 10/06/17 10/07/17 10/07/17 10/07/17 07:00 15:00 23:00 07:00 15:00 23:00 Intake Total 2417 ml 1770 ml 1200 ml Output Total 6 ml Balance 2417 ml 1764 ml 1200 ml Intake Oral 1450 ml 1770 ml 1200 ml IV Total 967 ml Output Urine Total 6 ml # Voids 2 3 # Bowel Movements 1 1 Laboratory Laboratory Tests Test 10/07/17 04:50 White Blood Count 12.7 Red Blood Count 4.05 Hemoglobin 12.0 Hematocrit 35.9 Mean Corpuscular Volume 88.7 Mean Corpuscular Hemoglobin 29.7 Mean Corpuscular Hemoglobin Concent 33.5 Red Cell Distribution Width 13.7 Platelet Count 251 Mean Platelet Volume 8.9 Neutrophils (%) (Auto) 73.9 Lymphocytes (%) (Auto) 16.9 Monocytes (%) (Auto) 7.7 Eosinophils (%) (Auto) 1.2 Basophils (%) (Auto) 0.3 Neutrophils # (Auto) 9.4 Lymphocytes # (Auto) 2.1 Monocytes # (Auto) 1.0 Eosinophils # (Auto) 0.2 Basophils # (Auto) 0.0 CBC Comment DIFF FINAL Differential Comment Blood Urea Nitrogen 4 Creatinine 0.61 Random Glucose 140 Total Protein 6.6 Albumin 2.1 Calcium Level 7.7 Alkaline Phosphatase 55 Aspartate Amino Transf (AST/SGOT) 21 Alanine Aminotransferase (ALT/SGPT) 35 Total Bilirubin 0.8 Sodium Level 136 Potassium Level 3.3 Chloride Level 104 Carbon Dioxide Level 17.4 Anion Gap 15 Estimat Glomerular Filtration Rate 160 Imaging Last Impressions Chest X-Ray 10/06/17 0000 Signed Impressions: CONCLUSION: No active disease Small Bowel X-Ray 10/05/17 0000 Signed Impressions: CONCLUSION: Mild mucosal wall thickening of jejunal bowel loops. No obstruction. No definit e perforation. Cholangiopancreatography MRI 10/05/17 0000 Signed Impressions: CONCLUSION: 1. Fluid and edematous changes around the pancreas most characteristic of an a cute pancreatitis. Normal appearance of the common bile duct and pancreatic clifton t. 2. Fatty infiltration with hepatomegaly up to 28 cm. Physical Exam HEENT: Obese, normocephalic; atraumatic; no jaundice. CHEST: Chest is clear to auscultation and percussion. CARDIAC: Regular tachycardic rhythm ABDOMEN: Obese, round, soft, nondistended, mild right lower quadrant dull ache , no palpable hepatosplenomegaly; bowel sounds are present in all four quadrants. EXTREMITIES: No clubbing, cyanosis, or edema. SKIN: No rash, pale TREE CARE FOREMAN: No focal deficits; alert and oriented times three. (Walter Tenorio) Assessment and Plan Plan - Abd pain- Symptoms started on Saturday, with N/V, first thought it was the flu, was placed on Theraflu. He started having RLQ pain, he went to the ED in [place], symptoms were attributed to newly diagnosed DM, CT done 10/04/17 and that showed extensive inflammatory changes in the retroperitoneum which appears to be centered on the duodenum, infectious or inflammatory duodenitis and/or perforation cannot be excluded. The pain is in right lower quadrant pain, but spreading to lower abd area, constant, 8/10, dull stabbing . He endorses fever of 99 at home. States BMs have been irregular, but he hasn't been eating right due to pain and decline in appetite. Endorses loose stools. He denies hematemesis, melena or hematochezia. Denies previous hx of this. No family hx of IBD. Labs revealed leukocytosis. - leukocytosis- likely secondary to above, blood cx pending, afebrile, Zosyn - Patient has just been diagnosed with diabetes, has not started his metformin yet, but states he does check his blood sugar at home with his mom's Accu-Chek and states it ranges from 180-200. Differential diagnosis include pancreatitis, diverticulitis, IBD 10/06/2017. Patient is feeling somewhat better but continues with right lower quadrant discomfort dull ache. Current hemoglobin 12.5 mild elevated nonspecific leukocytosis 14.4, lipase level decreased to 424. Patient shows hyperlipidemia per lab work and hyperglycemia which is going to need following on an outpatient basis. Patient also states he has had a tendency to have an upset stomach even as a child and diarrhea without any warning. He states the symptoms are better as he has gotten older. He does continue to use Pepto- Bismol as needed and does note his stools to be dark. MRCP showed fluid and edematous changes around the pancreas most consistent with acute pancreatitis. Normal appearance of common bile duct and pancreatic duct fatty liver disease with megaly up to 28 cm's. Small bowel series 2017 showed mild mucosal wall thickening of the jejunal bowel loops. No obstruction. No definite perforation. Discussed with patient the possibility for colonoscopy before discharge. Chronic abdominal pain and diarrhea could be related to IBS. 10/07/17 Acute pancreatitis likely alcohol related, pt drinks twice a day but significant amount, plans on quitting, no pervious hx of this MRCP with no evidence of stones in CBD, lipase trending down, LFTs wnl Plan: Diet clear liquids EGD/colonoscopy in the [facility] today NPO mn Alcohol cessation Monitor labs with special attention to lipase level, hemoglobin PPI Further recommendations to follow - Pt seen and examined by Dr. Delgado and myself and this note is written on her behalf. (Walter Tenorio) Physician Comments seen, examined agree with above (Radha Delgado MD) Walter Tenorio Oct 07, 2017 12:46 Radha Delgado MD Oct 07, 2017 20:45
[2017-10-07 16:00] VITALS: BP 142/87; PULSE 106; RESP 19; TEMP 98.3; O2SAT 94
[2017-10-07] MEDS ORDERED: PEG (High)/E-LYTE SOLN 4000 ML BTL PO ONE (16:00)
[2017-10-07 20:00] VITALS: BP 139/88; PULSE 107; PULSE 109; RESP 18; TEMP 98.7; O2SAT 98
[2017-10-07] MEDS: ATORVASTATIN 40 MG TAB PO SCH (21:22)
[2017-10-08] VITALS (7 sets, daily range): BP systolic 131–150; BP diastolic 77–102; PULSE 86–102; RESP 14–21; TEMP 98.3–98.8; O2SAT 94–98
[2017-10-08] MEDS: MORPHINE SULFATE 4 MG/ML INJ IV PUSH PRN ×2 (02:37→08:10)
[2017-10-08] MEDS: SODIUM CHLOR 0.9% 1000 ML INJ 1,000 ML IV SCH ×3 (04:21→20:55)
[2017-10-08] MEDS: INSULIN ASPART SUPPLEMENTAL SCALE SQ SCH ×4 (08:00→20:55)
[2017-10-08] MEDS: FLUTICASONE PROPIONATE 50 MCG/ACT 16 GM NASAL SPRAY NASAL SCH ×2 (08:10→20:55)
[2017-10-08] MEDS: LACTOBACILLUS ACIDOPHILUS TAB PO SCH ×2 (08:10→20:56)
[2017-10-08] MEDS: SODIUM CHLORIDE 0.9% FLUSH 10 ML FLUSH IV FLUSH SCH ×2 (08:11→20:57)
--- NOTE | 2017-10-08 08:35 | HHI.PR ---
Subjective Remarks in no acute distress. has mild lower abdominal pain. had some nausea but no emesis. for endoscopy later today. d/w the RN. Objective Vitals Vital Signs Date Time Temp Pulse Resp B/P (MAP) Pulse Ox O2 Delivery O2 Flow Rate FiO2 10/08/17 08:07 94 18 139/77 (97) 94 10/08/17 04:00 98.4 102 14 131/84 (100) 98 10/08/17 02:42 19 10/08/17 00:00 96 10/08/17 00:00 98.3 97 18 143/86 (105) 97 10/07/17 20:00 107 10/07/17 20:00 98.7 109 18 139/88 (105) 98 10/07/17 16:00 98.3 106 19 142/87 (105) 94 10/07/17 12:00 98.8 100 19 140/90 (107) 94 I/O 10/07/17 10/07/17 10/07/17 10/08/17 10/08/17 10/08/17 07:00 15:00 23:00 07:00 15:00 23:00 Intake Total 1200 ml 1500 ml 240 ml Balance 1200 ml 1500 ml 240 ml Intake Oral 1200 ml 1500 ml 240 ml # Voids 3 5 4 # Bowel Movements 1 20 Result Diagram: 10/07/17 0450 10/07/17 0450 Objective Remarks GENERAL: This is a well-nourished, well-developed patient, in no apparent distress. CARDIOVASCULAR: Regular rate and regular rhythm without murmurs, gallops, or rubs. RESPIRATORY: Clear to auscultation. Breath sounds equal bilaterally. No wheezes , rales, or rhonchi. GASTROINTESTINAL: Abdomen soft, non-tender, nondistended. Normal, active bowel sounds MUSCULOSKELETAL: Extremities without clubbing, cyanosis, or edema. NEURO: Alert & Oriented x4 to person, place, time, situation. Moves all ext x4 Medications and IVs Inpatient Medications Acetaminophen (Tylenol) 650 mg Q4H PRN PO TEMP > 100.4; Start 10/05/17 at 02:30 Albuterol/ Ipratropium (Duoneb Neb) 1 ampule Q6HR NEB PRN NEB SOB/WHEEZING; Start 10/06/17 at 14:30 Atorvastatin Calcium (Lipitor) 40 mg HS PO Last administered on 10/07/17at 21:22 ; Start 10/06/17 at 21:00 Benzonatate (Tessalon) 100 mg TID PRN PO COUGH; Start 10/06/17 at 14:30 Dextrose (D50w (Vial) Inj) 50 ml UNSCH PRN IV PUSH HYPOGLYCEMIA-SEE COMMENTS; Start 10/05/17 at 15:15 Enoxaparin Sodium (Lovenox Inj) 40 mg Q24H SQ Last administered on 10/07/17at 10 :03; Start 10/07/17 at 10:00; Status Future Hold Flumazenil (Romazicon Inj) 0.2 mg Q1M PRN IV PUSH SEE LABEL COMMENTS; Start at 17:00 Fluticasone Propionate (Flonase Randell Spr) 1 spray BID NASAL Last administered on 10/08/17at 08:10; Start 10/06/17 at 21:00 Glucagon (Glucagon Inj) 1 mg UNSCH PRN OTHER HYPOGLYCEMIA-SEE COMMENTS; Start 10/05/17 at 15:15 Insulin Aspart (NovoLOG SUPPLEMENTAL SCALE) 1 ACHS SLIDING SCALE SQ Last administered on 10/07/17at 21:24; Start 10/05/17 at 17:00 Lactobacillus Acidophilus (Lactinex) 1 tab Q12HR PO Last administered on at 08:10; Start 10/05/17 at 21:00 Lorazepam (Ativan Inj) 2 mg Q15M PRN IV PUSH CIWA > 20; Start 10/06/17 at 17:00 Lorazepam (Ativan) 2 mg Q2H PRN PO CIWA 11-14; Start 10/06/17 at 17:00 Metoclopramide HCl (Reglan Inj) 10 mg Q8H PRN IM nausea Last administered on at 16:00; Start 10/05/17 at 02:45 Morphine Sulfate (Morphine Inj) 2 mg Q3H PRN IV PUSH pain>5 Last administered on 10/08/17at 08:10; Start 10/05/17 at 02:45 Naloxone HCl (Narcan Inj) 0.4 mg UNSCH PRN IV PUSH SEE LABEL COMMENTS; Start at 02:30 Ondansetron HCl (Zofran Inj) 4 mg Q6HR PRN IV PUSH NAUSEA/VOMITING Last administered on 10/08/17at 08:11; Start 10/06/17 at 16:15 Piperacillin Sod/ Tazobactam Sod 50 ml @ 100 mls/hr Q6H IV Last administered on 10/06/17at 08:15; Start 10/05/17 at 03:00; Stop 10/06/17 at 14:37; Status DC Polyethylene Glycol/ Electrolytes (Colyte Liq) 4,000 ml ONCE ONCE PO Last administered on 10/07/17at 15:49; Start 10/07/17 at 16:00; Stop 10/07/17 at 16:01 ; Status DC Potassium Chloride 100 ml @ 50 mls/hr Q2H IV Last administered on 10/07/17at 11 :11; Start 10/07/17 at 09:00; Stop 10/07/17 at 12:59; Status DC Sodium Chloride (NS Flush) 2 ml BID IV FLUSH Last administered on 10/08/17at 08: 11; Start 10/05/17 at 09:00 A/P Assessment and Plan 1. Pancreatitis - CT A/P from ER on 10/03 showing inflammatory change and indistinctness involving the region of the head of the pancreas most characteristic of acute pancreatitis with adjacent calcification which may be located in the bowel; small amount of fluid extending down the right paracolic gutter into the pelvis ; prominent liver with moderate to severe hepatic steatosis; unremarkable appearing gallbladder with no calcified gallstone - Lipase down to 424 from 3353 - Small bowel follow-through showing mild mucosal wall thickening of jejunal bowel loops, no obstruction, no definite perforation - GI consulted, MRCP done yesterday showing fluid and edematous changes around the pancreas most characteristic of an acute pancreatitis, normal appearance of the CBD and pancreatic duct, and fatty infiltration with hepatomegaly up to 28 cm - planning on EGD/colonoscopy later today. - General surgery initially consulted by GI for concern over possible perforation but now signed off since there is no surgical indication at this time; appreciate their evaluation - Continue NS at 150 ml/hr - Antiemetics - Morphine PRN - Etiologies of pancreatitis discussed with patient and his family. Counseled on abstaining from alcohol, controlling diabetes, weight loss - ADAT 2. New onset DM - A1c elevated at 11.8 - family living educator and padder consulted - SSI per protocol -will likely discharge home on long-acting insulin along with SSI -advised to follow the diabetic diet and lose weight. 3. Diarrhea - May be secondary to contrast and IV abx - C. diff PCR negative - Lactobacillus 4. Cough- better. 5. Mixed hyperlipidemia - Started Atorvastatin 40 mg 6. Fatty liver infiltration - Counseled on the importance of weight loss, controlling DM and HLD - Avoiding hepatotoxic agents 7. EtOH abuse - Doubt withdrawal since last drink was +1 week ago - [facility] protocol - Counseled on the importance of cessation 8. Hypokalemia - replaced. DVT prophylaxis: Lovenox Discharge Planning dc home - likely tomorrow- pending GI w/u and clinical course. case management consult to assist with outpatient f/u's and meds. Shad Ware MD Oct 08, 2017 08:35
[2017-10-08] MEDS ORDERED: LEVEMIR SQ (08:39)
[2017-10-08] MEDS ORDERED: NOVOLOGP2 SQ (08:39)
[2017-10-08] MEDS ORDERED: ATOR40TA16 PO (08:39)
[2017-10-08 09:08] LABS: AUTOMATED NEUTROPHIL # 7.7 TH/MM3 (1.8-7.7); BASOPHIL % 0.4 % (0.0-2.0); EOSINOPHIL # 0.1 TH/MM3 (0-0.4); EOSINOPHIL % 1.4 % (0.0-4.0); HEMATOCRIT 38.5 % (39.0-51.0); HEMOGLOBIN 13.1 GM/DL (13.0-17.0); LYMPH % 15.4 % (9.0-44.0); LYMPHOCYTE # 1.6 TH/MM3 (1.0-4.8); MEAN CELL VOLUME 87.1 FL (80.0-100.0); MEAN CORPUSCULAR HEMOGLOBIN 29.5 PG (27.0-34.0); MEAN CORPUSCULAR HGB CONC 33.9 % (32.0-36.0); MEAN PLATELET VOLUME 8.6 FL (7.0-11.0); MONO % 8.1 % (0.0-8.0); MONOCYTE # 0.8 TH/MM3 (0-0.9); NEUT % 74.7 % (16.0-70.0); PLATELET COUNT 301 TH/MM3 (150-450); RED BLOOD COUNT 4.42 MIL/MM3 (4.50-5.90); RED CELL DISTRIBUTION WIDTH 13.2 % (11.6-17.2); WHITE BLOOD COUNT 10.3 TH/MM3 (4.0-11.0)
[2017-10-08] MEDS ORDERED: METOPROLOL TARTRATE 25 MG TAB PO PRN (10:15)
[2017-10-08] MEDS ORDERED: CHLORHEXIDINE GLUCONATE 2 % 1 PACK (2 CLOTHS) TOPICAL PRN (10:15)
[2017-10-08] MEDS ORDERED: POVIDONE IODINE 5% (ANTISEPSIS KIT) 4 APPLICATIONS EACH NARE PRN (10:15)
[2017-10-08] MEDS ORDERED: LACTATED RINGER'S 1000 ML IV PRN (10:15)
[2017-10-08] MEDS ORDERED: SODIUM CHLORID 0.9% 500 ML IV PRN (10:15)
[2017-10-08 10:37] LABS: BICARBONATE 24.3 MEQ/L (21.0-32.0); CALCIUM 8.5 MG/DL (8.5-10.1); CREATININE 0.65 MG/DL (0.60-1.30)
--- NOTE | 2017-10-08 11:05 | GIPROC ---
[facility] [address] [facility]. [facility], [address] COLONOSCOPY PROCEDURE REPORT EXAM DATE: 10/08/2017 PATIENT NAME: Edson Cleaning MR #: [id number] BIRTHDATE: 1990 ENDOSCOPIST: Radha Delgado MD ORDER #: [id number] QUALITY SYSTEM MANAGER: Asiya Xiong RN STATUS: inpatient INDICATIONS: The patient is a 27 yr old male here for a colonoscopy due to abdominal pain, diarrhea PROCEDURE PERFORMED: Colonoscopy with biopsy MEDICATIONS: None and Per Anesthesia. PREP QUALITY: fair PREP TYPE:Other: ESTIMATED BLOOD LOSS: None CONSENT: The patient understands the risks and benefits of the procedure and understands that these risks include, but are not limited to: sedation, allergic reaction, infection, perforation and/or bleeding. Alternative means of evaluation and treatment include, among others: physical exam, x-rays, and/or surgical intervention. The patient elects to proceed with this endoscopic procedure. medical equipment was checked for proper function. Hand hygiene and appropriate measures for infection prevention was taken. After the risks, benefits and alternatives of the procedure were thoroughly explained, Informed consent was verified, confirmed and timeout was successfully executed by the treatment team. A digital exam revealed hemorrhoids The endoscope was introduced through the anus and advanced to the cecum, which was identified by both the appendix and ileocecal valve. The instrument was then slowly withdrawn as the colon was fully examined. COLON FINDINGS: Some edema of colon wall in ascending-random biopsies from ascending and descending. Retroflexed views revealed internal hemorrhoids and Retroflexed views revealed small internal hemorrhoids The scope was then completely withdrawn from the patient and the procedure terminated. PROCEDURE WITHDRAWAL TIME:6minutes ADVERSE EVENTS: There were no complications. IMPRESSIONS: 1. Some edema of colon wall in ascending-random biopsies from ascending and descending 2. Retroflexed views revealed internal hemorrhoids 3. Retroflexed views revealed small internal hemorrhoids 4. Revealed hemorrhoids RECOMMENDATIONS: 1. Await biopsy results. Biopsy results will not be ready for 7-10 days. If you don't hear from us in two weeks, call our office for results. 2. Benefiber 2 tsp daily 3. Probiotics from any [employer] or [employer] food store 4. Yearly rectal exams RECALL: Return 10 years Colonoscopy Radha Delgado MD eSigned: Radha Delgado MD 10/08/2017 11:04 AM cc:
--- NOTE | 2017-10-08 11:07 | GIPROC ---
[facility] [address] [facility]. [facility], [id number] EGD PROCEDURE REPORT EXAM DATE: 10/08/2017 PATIENT NAME: Edson Cleaning MR #: [id number] BIRTHDATE: 1990 ATTENDING: Radha Delgado MD ORDER #: [id number] INTERNAL MEDICINE PHYSICIAN: Shena Wang and Asiya Xiong STATUS: inpatient INDICATIONS: The patient is a 27 yr old male here for an EGD due to abdominal pain, nausea, vomiting PROCEDURE PERFORMED: EGD w/ biopsy MEDICATIONS: None and Per Anesthesia. TOPICAL ANESTHETIC: Viscous Xylocaine CONSENT: The patient understands the risks and benefits of the procedure and understands that these risks include, but are not limited to: sedation, allergic reaction, infection, perforation and/or bleeding. Alternative means of evaluation and treatment include, among others: physical exam, x-rays, and/or surgical intervention. The patient elects to proceed with this endoscopic procedure. medical equipment was checked for proper function. Hand hygiene and appropriate measures for infection prevention was taken. After the risks, benefits and alternatives of the procedure were thoroughly explained, Informed consent was verified, confirmed and timeout was successfully executed by the treatment team. The patient was anesthetized with topical anesthesia and the Pentax [id number] endoscope was introduced through the mouth and advanced to the second portion of the duodenum. Retroflexed views revealed a hiatal hernia The gastroscope was then slowly withdrawn and removed. Gastritis antrum-biopsy duodenum normal-biopsy distal esophagus-biopsy. ADVERSE EVENTS: There were no complications. IMPRESSIONS: 1. Gastritis antrum-biopsy duodenum normal-biopsy distal esophagus-biopsy 2. Retroflexed views revealed a hiatal hernia RECOMMENDATIONS: 1. Await biopsy results. Biopsy results will not be ready for 7-10 days. If you don't hear from us in two weeks, call our office for biopsy results. 2. Anti-reflux regimen 3. Start PPI 4. Low fat diet ok to dc home from gi point fu pcp for control of diabetes avoid etoh if dc fu office PATIENT CONDITION: stable DISPOSITION: Inpatient REPEAT EXAM: Return 3 years EGD Radha Delgado MD eSigned: Radha Delgado MD 10/08/2017 11:07 AM cc: PATIENT NAME: Edson Cleaning Howie MR#: [id number]
[2017-10-08] MEDS ORDERED: PROPOFOL 200 MG/20 ML AMP IV ONE (12:00)
[2017-10-08] MEDS ORDERED: LIDOCAINE HCL 1% PF 5 ML SYRINGE OTHER ONE (12:00)
[2017-10-08] MEDS: ACETAMINOPHEN/HYDROcodone 325 MG/5 MG TAB PO PRN ×2 (17:04→20:58)
[2017-10-08] MEDS: ATORVASTATIN 40 MG TAB PO SCH (20:56)
[2017-10-08] MEDS ORDERED: INSULIN DETEMIR 100 UNITS/ML VIAL SQ SCH (21:00)
[2017-10-09] VITALS: BP 141/88; PULSE 86; PULSE 93; RESP 20; TEMP 98.1; O2SAT 97
[2017-10-09] MEDS: ACETAMINOPHEN/HYDROcodone 325 MG/5 MG TAB PO PRN ×2 (03:19→08:43)
[2017-10-09 04:00] VITALS: BP 139/89; PULSE 90; PULSE 96; RESP 20; TEMP 98.5; O2SAT 95
[2017-10-09 08:00] VITALS: BP 129/82; PULSE 94; RESP 19; TEMP 98.1; O2SAT 96
[2017-10-09] MEDS: LACTOBACILLUS ACIDOPHILUS TAB PO SCH (08:42)
[2017-10-09] MEDS: FLUTICASONE PROPIONATE 50 MCG/ACT 16 GM NASAL SPRAY NASAL SCH (08:43)
[2017-10-09] MEDS: SODIUM CHLORIDE 0.9% FLUSH 10 ML FLUSH IV FLUSH SCH (08:43)
[2017-10-09] MEDS: INSULIN ASPART SUPPLEMENTAL SCALE SQ SCH (08:44)
[2017-10-09] MEDS: SODIUM CHLOR 0.9% 1000 ML INJ 1,000 ML IV SCH ×2 (08:44)
--- NOTE | 2017-10-09 09:16 | HHI.PR ---
Subjective Remarks in no acute distress. has mild abdominal pain. no nausea or vomiting. blood sugar trend noted. d/w the RN. Objective Vitals Vital Signs Date Time Temp Pulse Resp B/P (MAP) Pulse Ox O2 Delivery O2 Flow Rate FiO2 10/09/17 08:00 98.1 94 19 129/82 (98) 96 10/09/17 04:00 98.5 96 20 139/89 (106) 95 10/09/17 04:00 90 10/09/17 00:00 98.1 93 20 141/88 (105) 97 10/09/17 00:00 86 10/08/17 20:00 96 10/08/17 20:00 98.8 95 20 140/90 (107) 95 10/08/17 16:55 97 10/08/17 16:00 98.5 96 20 150/91 (110) 97 10/08/17 11:14 97.7 93 16 142/87 (105) 97 I/O 10/08/17 10/08/17 10/08/17 10/09/17 10/09/17 10/09/17 07:00 15:00 23:00 07:00 15:00 23:00 Intake Total 240 ml 400 ml 360 ml Balance 240 ml 400 ml 360 ml Intake Oral 240 ml 360 ml Other 400 ml # Voids 4 5 # Bowel Movements 20 3 Result Diagram: 10/08/1784010/08/17 08 Objective Remarks GENERAL: This is a well-nourished, well-developed patient, in no apparent distress. CARDIOVASCULAR: Regular rate and regular rhythm without murmurs, gallops, or rubs. RESPIRATORY: Clear to auscultation. Breath sounds equal bilaterally. No wheezes , rales, or rhonchi. GASTROINTESTINAL: Abdomen soft, non-tender, nondistended. Normal, active bowel sounds MUSCULOSKELETAL: Extremities without clubbing, cyanosis, or edema. NEURO: Alert & Oriented x4 to person, place, time, situation. Moves all ext x4 Procedures EGD/ colonoscopy. Medications and IVs Inpatient Medications Acetaminophen (Tylenol) 650 mg Q4H PRN PO TEMP > 100.4; Start 10/05/17 at 02:30 Acetaminophen/ Hydrocodone Bitart ([place] 5-325 Mg) 1 tab Q4H PRN PO PAIN SCALE 4 TO 10 Last administered on 10/09/17at 08:43; Start 10/08/17 at 17:00 Albuterol/ Ipratropium (Duoneb Neb) 1 ampule Q6HR NEB PRN NEB SOB/WHEEZING; Start 10/06/17 at 14:30 Atorvastatin Calcium (Lipitor) 40 mg HS PO Last administered on 10/08/17at 20:56 ; Start 10/06/17 at 21:00 Benzonatate (Tessalon) 100 mg TID PRN PO COUGH; Start 10/06/17 at 14:30 Chlorhexidine Gluconate (Chlorhexidine 2% Cloth) 3 pack SOFTWARE ENGINEER PRN TOPICAL SEE LABEL COMMENTS; Start 10/08/17 at 10:15; Stop 10/11/17 at 10:14 Dextrose (D50w (Vial) Inj) 50 ml UNSCH PRN IV PUSH HYPOGLYCEMIA-SEE COMMENTS; Start 10/05/17 at 15:15 Enoxaparin Sodium (Lovenox Inj) 40 mg Q24H SQ Last administered on 10/07/17at 10 :03; Start 10/07/17 at 10:00; Status Future Hold Flumazenil (Romazicon Inj) 0.2 mg Q1M PRN IV PUSH SEE LABEL COMMENTS; Start at 17:00 Fluticasone Propionate (Flonase Randell Spr) 1 spray BID NASAL Last administered on 10/09/17at 08:43; Start 10/06/17 at 21:00 Glucagon (Glucagon Inj) 1 mg UNSCH PRN OTHER HYPOGLYCEMIA-SEE COMMENTS; Start 10/05/17 at 15:15 Insulin Aspart (NovoLOG SUPPLEMENTAL SCALE) 1 ACHS SLIDING SCALE SQ Last administered on 10/09/17at 08:44; Start 10/05/17 at 17:00 Insulin Detemir (Levemir Inj) 10 units HS SQ Last administered on 10/08/17at 20: 55; Start 10/08/17 at 21:00 Lactated Ringer's 1,000 ml @ 30 mls/hr Q24H PRN IV SEE LABEL COMMENTS Last administered on 10/08/17at 09:30; Start 10/08/17 at 10:15; Stop 10/11/17 at 10:14 Lactobacillus Acidophilus (Lactinex) 1 tab Q12HR PO Last administered on at 08:42; Start 10/05/17 at 21:00 Lorazepam (Ativan Inj) 2 mg Q15M PRN IV PUSH CIWA > 20; Start 10/06/17 at 17:00 Lorazepam (Ativan) 2 mg Q2H PRN PO CIWA 11-14; Start 10/06/17 at 17:00 Metoclopramide HCl (Reglan Inj) 10 mg Q8H PRN IM nausea Last administered on at 16:00; Start 10/05/17 at 02:45 Metoprolol Tartrate (Lopressor) 25 mg SOFTWARE ENGINEER PRN PO SEE LABEL COMMENTS; Start 10/08/17 at 10:15; Stop 10/11/17 at 10:14 Morphine Sulfate (Morphine Inj) 2 mg Q3H PRN IV PUSH pain>5 Last administered on 10/08/17at 08:10; Start 10/05/17 at 02:45 Naloxone HCl (Narcan Inj) 0.4 mg UNSCH PRN IV PUSH SEE LABEL COMMENTS; Start at 02:30 Ondansetron HCl (Zofran Inj) 4 mg Q6HR PRN IV PUSH NAUSEA/VOMITING Last administered on 10/08/17at 08:11; Start 10/06/17 at 16:15 Piperacillin Sod/ Tazobactam Sod 50 ml @ 100 mls/hr Q6H IV Last administered on 10/06/17at 08:15; Start 10/05/17 at 03:00; Stop 10/06/17 at 14:37; Status DC Polyethylene Glycol/ Electrolytes (Colyte Liq) 4,000 ml ONCE ONCE PO Last administered on 10/07/17at 15:49; Start 10/07/17 at 16:00; Stop 10/07/17 at 16:01 ; Status DC Potassium Chloride 100 ml @ 50 mls/hr Q2H IV Last administered on 10/07/17at 11 :11; Start 10/07/17 at 09:00; Stop 10/07/17 at 12:59; Status DC Povidone Iodine (Betadine 5% Antisepsis Kit) 1 applic SOFTWARE ENGINEER PRN EACH NARE SEE LABEL COMMENTS; Start 10/08/17 at 10:15; Stop 10/11/17 at 10:14 Sodium Chloride 500 ml @ 30 mls/hr [id number] PRN IV SEE LABEL COMMENTS; Start at 10:15; Stop 10/11/17 at 10:14 Sodium Chloride (NS Flush) 2 ml BID IV FLUSH Last administered on 10/09/17at 08: 43; Start 10/05/17 at 09:00 A/P Assessment and Plan 1. Pancreatitis- improving. - CT A/P from ER on 10/03 showing inflammatory change and indistinctness involving the region of the head of the pancreas most characteristic of acute pancreatitis with adjacent calcification which may be located in the bowel; small amount of fluid extending down the right paracolic gutter into the pelvis ; prominent liver with moderate to severe hepatic steatosis; unremarkable appearing gallbladder with no calcified gallstone - Lipase down to 424 from 3353 - Small bowel follow-through showing mild mucosal wall thickening of jejunal bowel loops, no obstruction, no definite perforation - GI consulted, MRCP done yesterday showing fluid and edematous changes around the pancreas most characteristic of an acute pancreatitis, normal appearance of the CBD and pancreatic duct, and fatty infiltration with hepatomegaly up to 28 cm - s/p EGD with : Gastritis antrum-biopsy/duodenum normal-biopsy/distal esophagus-biopsy. -s/p colonoscopy with; Some edema of colon wall in ascending-random biopsies from ascending and descending/2. Retroflexed views revealed internal hemorrhoids/3. Retroflexed views revealed small internal hemorrhoids - General surgery initially consulted by GI for concern over possible perforation but now signed off since there is no surgical indication at this time; appreciate their evaluation - Counseled on abstaining from alcohol, controlling diabetes, weight loss -cleared by GI for discharge. 2. New onset DM - A1c elevated at 11.8 - music educator and technology lead consulted - SSI per protocol -will discharge home on long-acting insulin along with SSI -advised to follow the diabetic diet and lose weight. 3. Mixed hyperlipidemia - Started Atorvastatin 40 mg 4. Fatty liver infiltration - Counseled on the importance of weight loss, controlling DM and HLD - Avoiding hepatotoxic agents 5. EtOH abuse - Doubt withdrawal since last drink was +1 week ago - CIWA protocol - Counseled on the importance of cessation 6. Hypokalemia - replaced. DVT prophylaxis: Lovenox Discharge Planning dc home today with f/u by pcp and GI. see med list. d/w the patient and RN. time spent 35 min. Shad Ware MD Oct 09, 2017 09:16
[2017-10-09] MEDS ORDERED: NORC5TAB PO (09:22)
[2017-10-09] MEDS ORDERED: PROT40TA PO (09:22)
--- NOTE | 2017-10-09 09:23 | HHI.DS ---
Discharge Summary Admission Date Oct 05, 2017 at 01:55 Discharge Date: Oct 09, 2017 Admitting Diagnosis acute pancreatitis. (1) Pancreatitis ICD Code: K85.90 - Acute pancreatitis without necrosis or infection, unspecified Diagnosis: Principal (2) Diabetes mellitus with hyperglycemia ICD Code: E11.65 - Type 2 diabetes mellitus with hyperglycemia Diagnosis: Principal Procedures EGD/ colonoscopy. Brief History - From Admission 27-year-old male with a history of newly diagnosed diabetes presented to the ED with complaints of abdominal pain. Patient states he is having right lower quadrant pain, constant, 8/10, dull stabbing , worse with movement with radiation to umbilical area and with associated nausea and fevers. He denies any chest pain, shortness of breath, fever or chills. Patient has just been diagnosed with diabetes, has not started his metformin yet, but states he does check his blood sugar at home with his mom's Accu-Chek and states it ranges from 180-200. Denies any chest pain or sob. CBC/BMP: 10/08/17 0841 10/08/17 0841 Significant Findings Laboratory Tests Test 10/06/17 09:44 10/07/17 04:50 10/08/17 08:41 White Blood Count 12.7 TH/MM3 (4.0-11.0) Red Blood Count 4.05 MIL/MM3 (4.50-5.90) 4.42 MIL/MM3 (4.50-5.90) Hemoglobin 12.0 GM/DL (13.0-17.0) Hematocrit 35.9 % (39.0-51.0) 38.5 % (39.0-51.0) Neutrophils (%) (Auto) 73.9 % (16.0-70.0) 74.7 % (16.0-70.0) Neutrophils # (Auto) 9.4 TH/MM3 (1.8-7.7) Monocytes # (Auto) 1.0 TH/MM3 (0-0.9) Blood Urea Nitrogen 4 MG/DL (7-18) 4 MG/DL (7-18) Random Glucose 140 MG/DL (74-106) 184 MG/DL (74-106) Albumin 2.1 GM/DL (3.4-5.0) Calcium Level 7.7 MG/DL (8.5-10.1) Potassium Level 3.3 MEQ/L (3.5-5.1) Carbon Dioxide Level 17.4 MEQ/L (21.0-32.0) Monocytes (%) (Auto) 8.1 % (0.0-8.0) Imaging Last Impressions Chest X-Ray 10/06/17 Signed Impressions: CONCLUSION: No active disease Small Bowel X-Ray 10/05/17 Signed Impressions: CONCLUSION: Mild mucosal wall thickening of jejunal bowel loops. No obstruction. No definit e perforation. Cholangiopancreatography MRI 10/05/17 Signed Impressions: CONCLUSION: 1. Fluid and edematous changes around the pancreas most characteristic of an a cute pancreatitis. Normal appearance of the common bile duct and pancreatic clifton t. 2. Fatty infiltration with hepatomegaly up to 28 cm. PE at Discharge GENERAL: This is a well-nourished, well-developed patient, in no apparent distress. CARDIOVASCULAR: Regular rate and regular rhythm without murmurs, gallops, or rubs. RESPIRATORY: Clear to auscultation. Breath sounds equal bilaterally. No wheezes , rales, or rhonchi. GASTROINTESTINAL: Abdomen soft, non-tender, nondistended. Normal, active bowel sounds MUSCULOSKELETAL: Extremities without clubbing, cyanosis, or edema. NEURO: Alert & Oriented x4 to person, place, time, situation. Moves all ext x4 Hospital Course 1. Pancreatitis- improving. - CT A/P from ER on 10/03 showing inflammatory change and indistinctness involving the region of the head of the pancreas most characteristic of acute pancreatitis with adjacent calcification which may be located in the bowel; small amount of fluid extending down the right paracolic gutter into the pelvis ; prominent liver with moderate to severe hepatic steatosis; unremarkable appearing gallbladder with no calcified gallstone - Lipase down to 424 from 3353 - Small bowel follow-through showing mild mucosal wall thickening of jejunal bowel loops, no obstruction, no definite perforation - GI consulted, MRCP done yesterday showing fluid and edematous changes around the pancreas most characteristic of an acute pancreatitis, normal appearance of the CBD and pancreatic duct, and fatty infiltration with hepatomegaly up to 28 cm - s/p EGD with : Gastritis antrum-biopsy/duodenum normal-biopsy/distal esophagus-biopsy. -s/p colonoscopy with; Some edema of colon wall in ascending-random biopsies from ascending and descending/2. Retroflexed views revealed internal hemorrhoids/3. Retroflexed views revealed small internal hemorrhoids - General surgery initially consulted by GI for concern over possible perforation but now signed off since there is no surgical indication at this time; appreciate their evaluation - Counseled on abstaining from alcohol, controlling diabetes, weight loss -cleared by GI for discharge. 2. New onset DM - A1c elevated at 11.8 - obstetrics technician and orthopaedic nurse consulted - SSI per protocol -will discharge home on long-acting insulin along with SSI -advised to follow the diabetic diet and lose weight. 3. Mixed hyperlipidemia - Started Atorvastatin 40 mg 4. Fatty liver infiltration - Counseled on the importance of weight loss, controlling DM and HLD - Avoiding hepatotoxic agents 5. EtOH abuse - Doubt withdrawal since last drink was +1 week ago - [facility] protocol - Counseled on the importance of cessation 6. Hypokalemia - replaced. DVT prophylaxis: Lovenox Pt Condition on Discharge: Stable Discharge Disposition: Discharge Home Discharge Time: > 30 minutes Discharge Instructions DIET: Follow Instructions for: Diabetic Diet, Low Fat Diet Activities you can perform: Regular-No Restrictions Shad Ware MD Oct 09, 2017 09:23
[2017-10-09 09:45] VITALS: RESP 18
== END 2017-10-09 12:11 | disposition home or self-care (01) | DRG 871 ==
LOC: NEDDLT 22:47 → NEPHCDU 10-05 01:55 → N03B 10-05 19:29
PROVIDERS: ADMIT Internal Medicine; ATTEND Internal Medicine
PROC: 0DB38ZX Excision of Lower Esophagus, Via Natural or Artificial Opening Endoscopic, Diagnostic (ICD-10-PCS; 2017-10-08)
PROC: 0DBK8ZX Excision of Ascending Colon, Via Natural or Artificial Opening Endoscopic, Diagnostic (ICD-10-PCS; 2017-10-08)
PROC: 0DBM8ZX Excision of Descending Colon, Via Natural or Artificial Opening Endoscopic, Diagnostic (ICD-10-PCS; 2017-10-08)
PROC: 0DB98ZX Excision of Duodenum, Via Natural or Artificial Opening Endoscopic, Diagnostic (ICD-10-PCS; principal; 2017-10-08 10:35)
PROC: 0DB78ZX Excision of Stomach, Pylorus, Via Natural or Artificial Opening Endoscopic, Diagnostic (ICD-10-PCS; 2017-10-08 10:35)
DX: A41.9 Sepsis, unspecified organism (principal); K85.90 Acute pancreatitis without necrosis or infection, unspecified; K76.0 Fatty (change of) liver, not elsewhere classified; E11.65 Type 2 diabetes mellitus with hyperglycemia; E78.2 Mixed hyperlipidemia; E87.6 Hypokalemia; K64.8 Other hemorrhoids; K29.70 Gastritis, unspecified, without bleeding; R19.7 Diarrhea, unspecified; R05 Cough; F10.10 Alcohol abuse, uncomplicated; Z83.3 Family history of diabetes mellitus
CPT/HCPCS: 36600; 71045; 71046; 74177; 74181; 74250; 76377; 80048; 80053; 80061; 80076; 81001; 82010; 82805; 82948; 83036; 83605; 83690; 83735; 85025; 87040; 87493; 88305; 96361; 96365; 96375; J1650; J1815; J2270; J2405; J2543; J2765; J3480; J7030; J7120; Q9963; Q9967